=== PATIENT | male | born 1990 | race Caucasian/White ===

== ENCOUNTER 2020-09-29 15:40 | Emergency (ER) | payer OTHER, SELFPAY ==
[2020-09-29 15:42] VITALS: BP 124/93; PULSE 94; RESP 18; TEMP 36.6; O2SAT 100; BMI 27.4
--- NOTE | 2020-09-29 15:53 | ED.DCSUM_ITS ---
History of Present Illness Chief Complaint: Syncope Informant: Patient Onset: Today Narrative: Patient brought by EMS for syncopal episode. The prodromal lightheaded symptoms. He was at his [id number] house eating a large meal for the holidays. He states afterwards felt little funny in his stomach, he went upstairs to get his son when he got worse. He laid down, he felt overwhelming feeling and did pass out. Denied any chest pains or shortness of breath. He states happened one other time when he ate a large meal at [place]. He states he passed out when blood was drawn in the past also. Since being picked up by EMS he had multiple large emesis and currently feels better and back to normal. Denies any current nausea. Denies any bloody stools. Denies any urinary symptoms. Denies any past medical history. Prior similar symptoms: Yes Past Medical History - Allergies and Home Meds Allergies/Adverse Reactions: Allergies No Known Allergies Allergy (Verified 09/29/20 15:42) Primary Care Physician: [facility] Doctor,Out of [NON-STAFF] - Past Medical History: None Smoking Status: Never smoker Review of Systems General: Denies: Chills, Fever, Sweats Eyes: Denies: Visual changes - bilaterally, Diplopia ENT: Denies: Rhinorrhea, Sore throat Cardiovascular: Denies: Chest pain, Palpitations Respiratory: Denies: Dyspnea, Cough, Dyspnea on exertion Gastrointestinal: Denies: Abdominal pain, Nausea, Vomiting, Diarrhea, Melena, Hematochezia Genitourinary: Denies: Dysuria, Hematuria, Frequency Musculoskeletal: Denies: Back pain, Extremity Pain Skin: Denies: Rash, Wounds Neurological: Denies: Headache, Weakness, Numbness Physical Exam Vital Signs/Narrative: Vital Signs Temp Pulse Resp BP Pulse Ox 09/29/20 15:42 97.9 F 94 18 124/93 H 100 Inital Vital Signs reviewed: Yes General: Well nourished, Well developed, No Acute Distress Head: Normocephalic, Atraumatic Eyes: Perrl, EOMI. Negative for: Pale conjunctiva ENT: Moist mucous membranes, No rhinorrhea Neck: Supple, Nontender Cardiovascular: Regular rate, Regular rhythm, No murmurs Respiratory: No distress, CTA bilaterally, Chest nontender Abdomen: Soft, Nontender, Nondistended, Normal bowel sounds Back: Nontender, Normal Inspection Extremities: Nontender, No edema Skin: Normal color, No rash Neurological: Alert, Oriented x3, Cranial nerves II-XII grossly intact, Normal Strength, Normal Sensation Psychological: Normal affect, Normal Mood Diagnostic/Tx/Re-eval Chest X-Ray - ED: 1 View, Read by ED Physician, No Acute Disease Clinical Impression(s) from Imaging Studies Chest X-Ray 09/29/20 16:10 IMPRESSION: Normal x-ray examination of the chest. Electronically Signed: Aldair Estrada MD at 16:36 EST , Service support , Abnormal Lab Results 09/29/20 09/29/20 16:40 16:40 WBC 15.3 H RBC 5.33 Hgb 15.5 Hct 44.5 MCV 83.5 MCH 29.1 MCHC 34.8 RDW Std Deviation 39.6 RDW Coeff of [place] 13.2 Plt Count 97 L MPV 10.5 Immature Gran % (Auto) 0.500 Neut % (Auto) 83.3 H Lymph % (Auto) 9.6 L [place] % (Auto) 5.8 Eos % (Auto) 0.5 Baso % (Auto) 0.3 Absolute Neuts (auto) 12.7 H Absolute Lymphs (auto) 1.47 Nucleated RBC % 0 Platelet Estimate SLT DEC Plt Morphology Comment LARGE RBC Morphology NORM C+C Sodium 141 Potassium 3.6 Chloride 110 H Carbon Dioxide 25.0 Anion Gap 6 BUN 21 H Creatinine 0.99 Estim Creat Clear Calc 105.56 Est GFR (MDRD) Af Amer 114 Est GFR (MDRD) Non-Af 94 BUN/Creatinine Ratio 21.3 H Glucose 161 H Calcium 8.7 Troponin I < 0.015 - EKG Initial EKG Interpretation: Sinus Rhythm - Sinus rate of 63, no ST or T wave changes, QTC 405, no signs of Brugada. - Medical Decision Making Patient history discussed and concern for vasovagal episode due to eating a large meal and starting to feel uncomfortable. He had similar episode from his history in the past with eating. EKG was normal. He is clinically felt back to normal. During evaluation family called and reported they concern patient was not breathing for 30 seconds. There is no cyanosis. He denied any chest pains. With their concerns lab work was obtained negative troponin he had a white count of 15, chest x-ray with no pneumonia which was reviewed by myself along with radiology read. He has no urinary symptoms, this is likely reactive due to his vomiting. He did not require any medications. He was ambulating. He is discharged and given outpatient follow-up. Strict signs and symptom discussed return. Patient is being discharged under pandemic conditions under declared global, national and state disaster activation, with limited medical resources. Patient and community understands this. Results discussed in layman's terms to the patient satisfaction. All questions answered in layman's terms. Patient understands importance of follow-up care as directed. Patient has been instructed to return to the ED immediately if new symptoms, problems, or questions occur. We mutually agree with the plan of disposition. The patient understand that they may call or return with any questions or concerns at any time. ED Disposition - Plan for ED Patient: Disposition: Home or Assisted Living Diagnosis: Vasovagal syncope Instructions: ED Fainting, Vagal Reaction Referrals: Vipul Miner III, MD [STAFF PHYSICIAN] - 3-5 Days
--- NOTE | 2020-09-29 16:10 | RAD_ITS ---
STUDY: X-RAY CHEST REASON FOR EXAM: Male, 30 years old. syncopal episode TECHNIQUE: AP portable COMPARISON: None. FINDINGS: The lungs are clear and expanded. There is no demonstrated pleural abnormality. Normal size heart. Normal mediastinum and diamond. Normal visualized pulmonary arteries. Normal visualized aortic arch and descending thoracic aorta. Normal visualized thoracic spine. Normal visualized ribs, clavicles, and shoulders. There is no demonstrated abnormality of the visualized soft tissue structures of the upper abdomen. RAD/Chest 1 View (Portable) IMPRESSION: Normal x-ray examination of the chest. Electronically Signed: Aldair Estrada MD at 16:36 EST , Service support ,
[2020-09-29 17:03] LABS: Absolute Lymphocyte Count 1.47 X10^3/uL (0.83-4.51); Absolute Neutrophil Count 12.7 X10^3/uL (2.0-7.7); Basophil# 0.05 X10^3/uL; Basophil% 0.3 % (0-1); Eosinophil# 0.07 X10^3/uL; Eosinophils% 0.5 % (0-5); Hematocrit 44.5 % (40-54); Hemoglobin 15.5 g/dL (13.0-16.5); Lymphocyte # 1.47 X10^3/ul (4.0); Lymphocyte % 9.6 % (19-41); Mean Corp Hgb Conc 34.8 g/dL (32-36); Mean Corpuscular Hgb 29.1 pg (27.0-32.0); Mean Corpuscular Volume 83.5 fL (80-94); Mean Platelet Vol. 10.5 fl (6.2-12.0); Monocyte# 0.89 X10^3/uL; Monocyte% 5.8 % (0-10); NRBC Flagged by Analyzer 0 % (0-5); Neutrophil # 12.69 X10^3/uL (2.7-7.7); Neutrophil % 83.3 % (47-70); POSITIVE COUNT YES; Platelet Count 97 K/mm3 (150-450); RBC Distribution Width CV 13.2 % (11.6-14.6); RBC Distribution Width SD 39.6 fl (35.1-43.9); Red Blood Count 5.33 M/mm3 (4.6-6.2); White Blood Count 15.3 K/mm3 (4.4-11.0)
[2020-09-29 17:04] LABS: Differential Indicated SCAN CRITERIA MET
[2020-09-29 17:05] LABS: Anion Gap 6 (5-15); BUN 21 mg/dL (7-18); BUN/Creat Ratio 21.3 RATIO (10-20); Calcium,Total 8.7 mg/dL (8.5-10.1); Chloride 110 mmol/L (98-107); Creatinine, Serum 0.99 mg/dL (0.70-1.30); EST Glomerular Filtration Rate 94 mL/min (>60); Est Glom Filt Rate - Afr Amer 114 mL/min (>60); Estimated Creatinine Clearance 105.56 ml/min; Glucose 161 mg/dL (74-106); Potassium 3.6 mmol/L (3.5-5.1); Sodium Level 141 mmol/L (136-145)
[2020-09-29 17:38] LABS: Platelet Estimate SLT DEC (ADEQ); Platelet Morphology LARGE; Red Cell Morphology NORM C+C NORMAL (NORM C&C)
[2020-09-29 18:09] VITALS: PULSE 73; RESP 17; O2SAT 96
[2020-09-29 18:17] VITALS: BP 127/101; PULSE 93; RESP 16; O2SAT 100
== END 2020-09-29 18:37 | disposition home or self-care (01) ==
PROVIDERS: Emergency Provider Emergency Medicine
DX: R55 Syncope and collapse (principal)
CPT/HCPCS: 71045; 80048; 84484; 85025; 93005; 99285; A4216